=== PATIENT | female | born 1980 | race Hispanic/Latino ===

== ENCOUNTER 2016-08-02 03:30 | Emergency (ER) | payer SELFPAY ==
[2016-08-02 03:36] VITALS: BP 131/93; PULSE 95; RESP 17; TEMP 98.4; O2SAT 95
--- NOTE | 2016-08-02 03:40 | ED PDOC ---
HPI: General Adult Time Seen by Provider: 08/02/16 03:35 Chief Complaint (Nursing): Medical Clearance Chief Complaint (Provider): blood draw History Per: Other (PD) Additional Complaint(s): 36 y/o female here with [employer] for lab draw. Patient denies acute medical or psychiatric complaints. Past Medical History Reviewed: Historical Data, Nursing Documentation, Vital Signs Vital Signs: Last Vital Signs Temp 98.4 F 08/02/16 03:31 Pulse 95 H 08/02/16 03:31 Resp 17 08/02/16 03:31 BP 131/93 H 08/02/16 03:31 Pulse Ox 95 08/02/16 03:41 - Medical History PMH: Deep Vein Thrombosis (left leg) - Surgical History Surgical History: - Family History Family History: States: Unknown Family Hx - Allergies Allergies/Adverse Reactions: Allergies Allergy/AdvReac Type Severity Reaction Status Date / Time No Known Allergies Allergy Verified 08/02/16 03:36 Review of Systems ROS Statement: Except As Marked, All Systems Reviewed And Found Negative Physical Exam - Reviewed Nursing Documentation Reviewed: Yes Vital Signs Reviewed: Yes - Physical Exam Appears: Positive for: Well, Non-toxic, No Acute Distress Cardiovascular/Chest: Positive for: Regular Rate, Rhythm Respiratory: Positive for: Normal Breath Sounds Neurologic/Psych: Positive for: Alert, Oriented - ECG O2 Sat by Pulse Oximetry: 95 - Progress ED Course And Treament: police here with blood kit for blood draw. Disposition - Clinical Impression Clinical Impression: Blood drug testing for medicolegal reasons - Disposition Disposition: Routine/Home Disposition Time: 03:41 Condition: STABLE
== END 2016-08-02 04:01 ==
LOC: H.ER 03:30
DX: Z86.718 Personal history of other venous thrombosis and embolism (principal)